=== PATIENT | male | born 1980 | race Caucasian/White ===

== ENCOUNTER 2025-01-18 13:41 | Inpatient (IN) | payer OTHER, MEDICAID ==
[~2025-01-18] VITALS: Ht 182.9 cm; Wt 86.4 kg
[2025-01-18] VITALS (21 sets, daily range): BP systolic 111–143; BP diastolic 57–86; PULSE 52–66; RESP 14–21; TEMP 96.8–98; O2SAT 94–98
[~2025-01-18 13:41] MED LIST: LIDOcaine 1% 30ml preserv. free vial ONE; heparin 25,000 UNIT/250ml bag 250 ML IV ONE; iohexol 350MG/ML 100ml bottle IV ONE; nitroGLYCERIN 0.4mg SUBLingual tab SL ONE; tirofiban 12.5mg in NS 250mL 250 ML IV ONE
--- NOTE | 2025-01-18 13:45 | Physician Documentation ---
History of Present Illness ~ Stated Complaint: STEMI Time Seen by MD: 13:45 Source: patient HPI 44-year-old male prior history of methamphetamine use presenting for chest pain. His chest pain has been on and off over the last few days and then began abruptly about half an hour prior to arrival. He describes it as a crushing tightness with associated shortness of breath. No history of venous thromb oembolism . No family history of sudden cardiac Medication Reconciliation Allergies: Uncoded Allergies: BEES (Allergy, Unknown, 01/18/25) Review of Systems All Other Systems at this time: Reviewed and Negative Respiratory: Reports: shortness of breath, SOB with exertion Cardiovascular: Reports: chest pain Gastrointestinal: Denies: abdominal pain Physical Exam Physical Exam Uncomfortable, diaphoretic Pulmonary clear to auscultation Cardiac no murmur Abdomen is soft nontender Neuro awake alert oriented Lower extremity no edema Progress Progress Note Labs independently interpreted showed troponin elevation Discussed case with Cardiology they agreed that this is a STEMI and he is taken to the laborer wrecking and salvaging Results/Orders Reviewed/noted all lab results: Yes Results/Orders Orders - ANAI SAINZ MD Hs Troponin I W Calculations (01/18/25 15:46) Hs Troponin I W Calculations (01/18/25 16:46) Chest,Single View (01/18/25 13:46) Monitor (01/18/25 13:46) Saline Lock (01/18/25 13:46) Oxygen (01/18/25 13:46) Type And Screen (01/18/25 ) Nitroglycerin Sublingual Tab (Nitrostat (01/18/25 13:55) Drug Screen, Urine (01/18/25 13:55) Completed Orders - ANAI SAINZ MD Cbc/Diff (01/18/25 13:46) Pt Inr (01/18/25 13:46) PTT (01/18/25 13:46) PBNP (01/18/25 13:46) Hs Troponin I W Calculations (01/18/25 13:46) Chest,Single View (01/18/25 13:46) Electrocardiogram (01/18/25 13:46) CMP (01/18/25 13:46) Midazolam 1 Mg/Ml 2ml Inj. (Versed 1 Mg/ (01/18/25 14:17) Fentanyl/Pf (Fentanyl 0.05 Mg/Ml Syringe (01/18/25 14:17) Diphenhydramine Inj (Benadryl Inj.) (01/18/25 14:18) Heparin 1,000unit/Ml 10ml Vial (Heparin (01/18/25 14:26) Nitroglycerin 500mcg/5ml D5w (Nitroglyce (01/18/25 14:28) Iohexol 350mg/Ml 50ml Inj (Omnipaque 350 (01/18/25 14:30) Ticagrelor Tablet (Brilinta Tablet) (01/18/25 15:13) Medications Received in ER Medications (Trade) Dose Ordered Sig/Apolinar Route PRN Reason Start Time Stop Time Status Last Admin Dose Admin (Nitrostat SL tablet) 0.4 mg Q5MIN PRN SL chest pain 01/18/25 13:55 01/18/25 13:51 0.4 MG Vital Signs 01/18/25 01/18/25 01/18/25 13:49 14:06 14:09 Pulse 60 55 Resp 22 12 18 B/P (MAP) 129/83 130/82 (98) Pulse Ox 97 96 O2 Flow Rate 0 0 Laboratory Tests Test 01/18/25 13:49 White Blood Count 12.4 H Red Blood Count 5.51 Hemoglobin 16.5 Hematocrit 49.6 Mean Corpuscular Volume 90.0 Mean Corpuscular Hemoglobin 29.9 Mean Corpuscular Hemoglobin Concent 33.3 Red Cell Distribution Width 14.1 Platelet Count 311 Mean Platelet Volume 7.1 L Neutrophils (%) (Auto) 49.1 Lymphocytes (%) (Auto) 39.8 Monocytes (%) (Auto) 7.7 Eosinophils (%) (Auto) 2.5 Basophils (%) (Auto) 0.9 Neutrophils # (Auto) 6.1 Lymphocytes # (Auto) 5.0 H Monocytes # (Auto) 1.0 H Eosinophils # (Auto) 0.3 Basophils # (Auto) 0.1 CBC Comment Prothrombin Time 9.8 INR International Normalized Ratio 1.0 Activated Partial Thromboplast Time 23 Coagulation Comments Sodium Level 141 Potassium Level 3.6 Chloride Level 105 Carbon Dioxide Level 25.4 Anion Gap 11 Blood Urea Nitrogen 8 Creatinine 1.42 H Estimated GFR/1.73 m2 54 BUN/Creatinine Ratio 5.6 L Glucose Level 117 H Calcium Level 9.0 Total Bilirubin 0.4 Aspartate Amino Transf (AST/SGOT) 29 Alanine Aminotransferase (ALT/SGPT) 42 Alkaline Phosphatase 52 Troponin I High Sensitivity 168 *H Pro-B-Type Natriuretic Peptide 102 Total Protein 7.0 Albumin 3.8 Globulin 3.2 Albumin/Globulin Ratio 1.2 Chemistry Comments EKG/XRAY/CT/US/VASC/MRI EKG : Additional Comment EKG independently interpreted time 1:58 p.m. indication chest pain sinus bradycardia rate 48 ST-elevation [address] depression lead V1 Medical Decision Making Differential Dx:Considerations: Include: angina, aortic dissection, chest wall pain, cholelithiasis, CHF Departure Disposition: ADMITTED INPATIENT Admitted to Inpatient Unit: to creative developer Impression: Primary Impression: STEMI (ST elevation myocardial infarction) Qualified Codes: I21.3 - ST elevation (STEMI) myocardial infarction of unspecified site Referrals: NO PRIMARY CARE PROVIDER (PCP) Critical Care Note Total Time (mins): 30 Critical Care Note The very real possibility of a deterioration of this patient's condition required the highest level of my preparedness for sudden, emergent intervention. I provided critical care services, which included medication orders, frequent reevaluations of the patient's condition and response to treatment, ordering and reviewing test results, and discussing the case with various consultants. Excludes time spent performing separately billable procedures. The critical care time associated with the care of the patient was 30 minutes in the acute management of ST-elevation [place] Signature Scribe Signature: na Attestation: ANAI Guthrie MD January 18, 2025 13:45
[2025-01-18] MEDS: nitroGLYCERIN 0.4mg SUBLingual tab SL PRN (13:51)
[2025-01-18 13:56] LABS: BASOPHILS # (AUTO) 0.1 X10'3 (0-0.2); BASOPHILS % (AUTO) 0.9 % (0-1); EOSINOPHILS # (AUTO) 0.3 X10'3 (0-0.9); EOSINOPHILS % (AUTO) 2.5 % (0-6); HEMATOCRIT 49.6 % (42.0-52.0); HEMOGLOBIN 16.5 g/dl (14.0-17.9); LYMPHOCYTES % (AUTO) 39.8 % (21-51); MEAN CORPUSCULAR HEMOGLOBIN 29.9 PG (27.0-31.0); MEAN CORPUSCULAR HGB CONC 33.3 g/dL (33.0-36.5); MEAN PLATELET VOLUME 7.1 FL (7.4-10.4); MONOCYTES % (AUTO) 7.7 % (2-12); NEUTROPHILS # (AUTO) 6.1 X10'3 (1.8-7.7); NEUTROPHILS % (AUTO) 49.1 % (42-75); PLATELET COUNT 311 X10'3 (140-440); RED BLOOD COUNT 5.51 X10'6 (4.70-6.10); RED CELL DISTRIBUTION WIDTH 14.1 % (11.5-14.5); WHITE BLOOD COUNT 12.4 X10'3 (4.5-11.0)
--- NOTE | 2025-01-18 14:00 | ELECTROCARDIOGRAPH REPORT ---
[facility] Test Date: 2025-01-18 Test Time: 13:58:13 Pat Name: LEANDRA HARRIS Department: EMERGENCY ROOM Room: [place] [address] Gender: M Sales Team Recruiter: CHELO : 1980 Requested By: ANAI SAINZ Order Number: [id number] Reading MD: Dr. Leodan Hicks Measurements Intervals [place] Rate: 48 P: 66 SC: 126 QRS: 78 QRSD: 120 T: 74 QT: 460 QTc: 411 Interpretive Statements Sinus bradycardia Nonspecific intraventricular conduction delay Inferior infarct, acute (LCx) Lateral leads are also involved Electronically Signed On 01-20-2025 11:02:[address] Leodan Hicks Please click the below link to view image of tracing.
--- NOTE | 2025-01-18 14:02 | RADIOLOGY REPORT ---
EXAM: DI CHEST,SINGLE VIEW HISTORY: CP/STEMI ALERT COMPARISON: None TECHNIQUE: Portable upright AP view of the chest was performed. FINDINGS: There is hazy opacity in the right lung base. No pneumothorax, consolidative infiltrates, or pulmonar y edema. There may be an azygous lobe. The heart is not enlarged. IMPRESSION: 1. Hazy opacity in the right lung base which may represent scarring, atelectasis, or mild pneumonia. Comparison with old films would be helpful in making this distinction. 2. The left lung is clear.
[2025-01-18 14:11] LABS: APTT 23 SECONDS (22-32); PROTHROMBIN TIME 9.8 SECONDS (9.0-12.0)
[2025-01-18 14:13] LABS: ALANINE AMINOTRANSFERASE 42 U/L (12-78); ALBUMIN 3.8 G/DL (3.4-5.0); ALBUMIN/GLOBULIN RATIO 1.2 (1.1-1.5); ALKALINE PHOSPHATASE 52 IU/L (46-116); ANION GAP 11 (8-16); ASPARTATE AMINO TRANSFERASE 29 U/L (10-37); BILIRUBIN,TOTAL 0.4 MG/DL (0.1-1.0); BLOOD UREA NITROGEN 8 MG/DL (7-18); BUN/CREATININE RATIO 5.6 (10.0-20.0); CHLORIDE 105 MMOL/L (99-107); CREATININE 1.42 MG/DL (0.60-1.10); GLUCOSE 117 MG/DL (70-104); POTASSIUM 3.6 MMOL/L (3.5-5.1); SODIUM 141 MMOL/L (135-145); TOTAL CARBON DIOXIDE 25.4 MMOL/L (24-32); eCRCL 71 ML/MIN; eGFR 54 ML/MIN
[2025-01-18] MEDS ORDERED: midazolam 1 mg/ML 2ml injection ONE (14:17)
[2025-01-18] MEDS ORDERED: fentaNYL/PF 50MCG/1 ML 2ML syringe ONE (14:17)
[2025-01-18] MEDS ORDERED: diphenhydrAMINE 50 mg/ml inj ONE (14:18)
[2025-01-18 14:20] LABS: PRO BRAIN NATRIURETIC PEPTIDE 102 PG/ML (0-125)
[2025-01-18] MEDS ORDERED: heparin 1,000unit/ml 10ml vial 10 ML ONE (14:26)
[2025-01-18] MEDS ORDERED: nitroGLYCERIN 500mcg/5mL D5W 5 ML IV ONE (14:28)
[2025-01-18] MEDS ORDERED: iohexol 350 MG/ML 50ML vial IV ONE (14:30)
[2025-01-18] MEDS ORDERED: ticagrelor 90mg tablet ONE (15:13)
--- NOTE | 2025-01-18 16:36 | CONSULTATION REPORT ---
Cardiac Consultation Report Providers to CC ~ Subjective Subjective Cardiology consultation: Patient had several days of anginal symptoms finally culminating in severe pain and he was brought in by paramedics declared to be in acute NV initially arrived in the ER and then electrocardiogram appeared normalized and there was initial cancellation subsequently pain persisted repeat EKG showed ST elevation and acute NV was reestablished and patient called to the section laborer. He is shaking anxious writing with chest pain. He is status post right knee surgery has chronic lumbosacral pain. He is not working at this time due to osteoarthritis degenerative joint disease he manages his pain with THC. Remotely he used recreational substance abuse. His is present. Objective Vitals Vital Signs Date Time Temp Pulse Resp B/P (MAP) Pulse Ox O2 Delivery O2 Flow Rate FiO2 01/18/25 14:09 18 01/18/25 14:06 55 96 0 Lab Results: 01/18/25 1349 01/18/25 1349 Objective Carotid no bruit chest clear to auscultation percussion heart no murmur no S3 gallop no rub tachycardic. Peripheral pulses intact no edema. No lateralizing sign of stroke. Ocular motions intact speech fluent. Pupils equal. Coagulation Studies Laboratory Tests Test 01/18/25 13:49 Prothrombin Time 9.8 SECONDS (9.0-12.0) INR International Normalized Ratio 1.0 INR Activated Partial Thromboplast Time 23 SECONDS (22-32) Coagulation Comments Other Results Electrocardiogram variable ST-T changes concave ST elevation than normal STs then subsequent convex ST elevation in one lead. Laboratories are pending. The just have been drawn and a chest x-ray just performed. Problem\Assessment\Plan Additional Plan Impression waxing waning inferolateral myocardial infarction; recommendation diagnostic coronary angiography intervention as needed. Risks benefits alternatives discussed with patient he wants to proceed. AMARA VELEZ MD January 18, 2025 16:36
--- NOTE | 2025-01-18 16:39 | CARDIAC CATH REPORT ---
Cardiology Post Cath Findings Findings Findings: Post cardiac catheterization intervention cardiac note: Left heart catheterization left ventriculography left circumflex PTCA left circumflex stent deployment left ventriculography. 1. Left ventriculogram mid segment with small triangular shaped akinetic segment corresponding to left circumflex distribution vessel. 2. Heavy calcification of left anterior descending proximally with 20% narrowing. 3. 99% calcific proximal large left circumflex coronary artery thrombus present. 4. 60% 3 cm length mid right coronary artery narrowing. 5.: Post intervention 0% residual left circumflex narrowing. Comment: Patient has not been seeing physicians for medical care has no prior treatment of risk factors. He received Brilinta in the lab instructor. Heparin and Aggrastat to be shut off. Angio-Seal to be performed. Admitted to hospitalist service to initiate guideline directed medical therapy. Discussed results and findings with patient. Would like to see patient in follow-up post discharge approximately two weeks after discharge. AMARA VELEZ MD January 18, 2025 16:39
[2025-01-18] MEDS ORDERED: ondansetron/PF 4mg/2ml inj IV PRN ×2 (16:50→18:30)
[2025-01-18] MEDS ORDERED: normal saline 1000ml 1,000 ML IV SCH (16:50)
[2025-01-18] MEDS ORDERED: proCHLORperazine 10 MG/2 ml inj IV PRN ×2 (16:50→16:55)
[2025-01-18] MEDS ORDERED: nitroGLYCERIN 0.4mg SUBLingual tab SL PRN ×2 (16:50→18:35)
[2025-01-18] MEDS ORDERED: OXAZEpam 15mg capsule PO PRN ×2 (16:50→16:55)
[2025-01-18] MEDS ORDERED: HYDROcodone/acetaminophen 5mg/325mg tablet PO PRN ×2 (16:50→18:30)
[2025-01-18] MEDS ORDERED: morphine 10mg/ml inj. IV PRN (16:55)
[2025-01-18] MEDS ORDERED: HYDROcodone/acetaminophen 10/325mg tab PO PRN ×2 (16:55)
[2025-01-18] MEDS ORDERED: acetaminophen 325mg tablet PO PRN ×3 (16:55→18:30)
[2025-01-18] MEDS ORDERED: cyclobenzaprine 10mg tablet PO PRN (16:55)
[2025-01-18] MEDS ORDERED: magnesium hydroxide 30ml (MOM) UD suspension PO PRN ×2 (16:55→18:30)
[2025-01-18] MEDS ORDERED: morphine 4 MG/ML inj SYRINge IV PRN ×2 (16:55→16:56)
[2025-01-18] MEDS ORDERED: heparin 10,000 units/1 ML INJ IV ONE (17:10)
[2025-01-18] MEDS ORDERED: heparin 25,000 UNIT/250ml bag 250 ML IV PRN (17:10)
[2025-01-18] MEDS ORDERED: heparin 10,000 units/1 ML INJ IV PRN (17:10)
[2025-01-18] MEDS ORDERED: NO HOME MEDS (18:07)
--- NOTE | 2025-01-18 18:08 | CARDIOLOGY REPORT ---
DATE OF SERVICE: 01/18/2025 DICTATING PHYSICIAN: Reji Singer MD PROCEDURES: * Left heart catheterization. * Left ventriculography. * Selective left and right internal mammary angiography. * Selective left and right coronary angiography. * Left circumflex PTCA. * Left circumflex stent deployment. * Right iliofemoral arteriogram. * Conscious sedation administration 60 minutes. BRIEF HISTORY AND INDICATION: A 44-year-old male had several days of angina, subsequently had crushing chest pain, diaphoresis, was transported to the ER. Initial EKG did not show an acute MA. Subsequently, variable STs occurred with ST elevation and he was brought to the recyclable materials sorter for urgent catheterization and revascularization. No allergies. He is limited in his activities usually by low back pain and right knee pain. He has had a laparoscopic surgical procedure of his right knee. Risks, benefits and alternatives were discussed with him and he has decided to proceed. present. TECHNIQUE: Following usual sterile preparation and draping, right groin was infiltrated with 10 mL of 1% lidocaine local anesthetic. In the recyclable materials sorter, the patient received 25 of Benadryl intravenously. Heparin bolus was increased to a total of 8000, started on heparin infusion 1000 units per hour; started on a Aggrastat infusion, loading dose 25 mcg, infusion at 7.5 mcg per kilogram adjusted for his creatinine. He received 2 mg Versed and 100 mcg fentanyl for sedation. He was noted to be hypotensive and saline infusion was initiated. He received 1 liter during the procedure. Following placement of a 6-Ghanaian sheath in the right femoral artery, left and right coronary artery arteriography, internal mammary arteriography, and left ventriculography were performed with Mejia-shaped catheters. Catheter exchanges under fluoroscopy with J-tip guidewire. A 6-Ghanaian femoral left 4 guide with side hole and an XBC 4 guide with side hole did not fit to the ostium of the left main to provide adequate support for intervention. Finally, an XBC 4.5, 6-Ghanaian guide was used. In the meantime, 6-Ghanaian arterial sheath was upgraded to a 7-Ghanaian sheath, so there would be less friction retained with respect to catheter manipulation. A BMW 0.014 wire was positioned across the stenotic segment. Initially, a 2.5 mm x 12 mm Trek balloon was deployed to 14 atmospheres within stenotic segments. Subsequently, a 3 mm x 12 mm [place] stent was deployed to 14 atmospheres. Wire was removed. Repeat angiography was performed. A 6-Ghanaian femoral right 4 guide with side hole was used for repeat right coronary angiography. Intracoronary nitroglycerin was administered. It was a stable ____ cm length right coronary artery narrowing. It was decided not to intervene. Sheaths were sewn in place. The patient is on heparin and Aggrastat. They are to be discontinued. He received ticagrelor 180 p.o. in the recyclable materials sorter. Angio-Seal to be applied 2 hours later. No complications. 170 mL of 350 Omnipaque contrast was used. Fluoroscopy time was 31 minutes. Radiation exposure was 8087 cGy/cm2. FINDINGS: Ejection fraction of 66% mid inferior segment with a triangle-shaped akinetic segment from left circumflex vessel involvement. There is heavy calcification of the proximal left anterior descending, 25% narrowing, 99% proximal left circumflex narrowing with thrombus present. Large right coronary artery with 3 cm length 60% narrowing. Post intervention, 0% residual left circumflex narrowing. RESULTS: * Mid inferior small triangle-shaped akinetic segment, ejection fraction of 66%. * Heavy calcification of proximal left anterior descending, 25% narrowing. * 99% proximal left circumflex thrombus. * Post left circumflex sent, 0% residual stenosis. * Right coronary artery with ____ cm length, 60% mid narrowing, unresponsive to intracoronary nitroglycerin. COMMENT: The patient will be started on guideline-directed therapies, admitted to the hospitalist service. Reji Singer MD TID: [id number] RECEIPT: [id number] TR/NATTY/DAR cc: Hospitalist Service, [facility]
[2025-01-18] MEDS ORDERED: mag hydrox/Alum hydrox/simeth 30ml oral suspension PO PRN (18:30)
[2025-01-18] MEDS ORDERED: potassium Cl 40MEQ/1/2NS 520ml 520 ML IV PRN (18:30)
[2025-01-18] MEDS: PERFLUTREN PROTEIN-A MICROSPHR (Optison) 0.22 MG/ML 3ML VIAL IV ONE (18:30)
[2025-01-18] MEDS ORDERED: magnesium Cl slow-release 64mg tablet PO PRN (18:30)
[2025-01-18] MEDS: normal saline 1000ml 1,000 ML IV SCH (18:30)
[2025-01-18] MEDS ORDERED: potassium Cl 20 mEq SR tablet PO PRN ×2 (18:30)
[2025-01-18] MEDS ORDERED: magnesium sulf-water 2g/50mL 50 ML IV PRN (18:30)
[2025-01-18] MEDS ORDERED: morphine 2 MG/ML inj. syringe IV PRN (18:30)
[2025-01-18] MEDS ORDERED: magnesium sulf-water 4G/100mL 100 ML IV PRN (18:30)
--- NOTE | 2025-01-18 18:40 | HISTORY AND PHYSICAL-Residence ---
History & Physical Providers to CC Resident Creating Document: FERNIE BURGOS, RES CC: DEMETRIUS DISLA MD ~ History of Present Illness Reason for Admit\Complaint: Chest pain since two days History of Present Illness A 44-year-old male with no past medical history presented to the ED with severe crushing chest pain since this morning. Patient has been experiencing chest pain that has been intermittent for the last two days but this has been the worst episode in the morning. Patient states that he had sharp chest pain which was 10/10 in severity with radiation to the right arm and that settle down with nitroglycerin momentarily. In the ED, EKG showed ST elevations in two three AVF therefore STEMI alert was called and patient was directly transferred to the blood bank laboratory technician where he underwent catheterization and stent placement in the left circumflex artery. Patient endorses associated shortness of breaths, dizziness, palpitations, diaphoresis with chest pain. Allergies: Uncoded Allergies: BEES (Allergy, Unknown, 01/18/25) Home Medications Home Medications Active Reported No Home Medications (Home Med List) Each Past Medical History Past Medical History None Past Surgical History Surgical History Comment Knee surgery Past Social History Social History Comment Patient lives at home with his Goes [facility] for [facility] Independent with ambulation Does not smoke cigarettes, consume alcohol or illicit drugs Consumes marijuana (smoking) every day ROS ROS All other systems reviewed in full and negative except for the pertinent positives mentioned in the HPI Respiratory: Reports: shortness of breath, SOB with exertion Cardiovascular: Reports: chest pain Gastrointestinal: Denies: abdominal pain Exam Vitals: Vital Signs Date Time Temp Pulse Resp B/P (MAP) Pulse Ox O2 Delivery O2 Flow Rate FiO2 01/18/25 17:00 62 14 126/83 97 123/62 01/18/25 14:06 0 General: General: Alert, awake, oriented, in acute distress HEENT: PERRLA, no icterus, pallor, lymphadenopathy, carotid bruit Respiratory system: Bilateral vesicular breath sounds heard, no adventitious breath sounds CVS: S1-S2 heard, no murmurs/rubs/gallop GI: Soft, nontender, no organomegaly, no guarding/rigidity, bowel sounds present Neuro: No focal neurological deficits present Extremities: No edema cyanosis clubbing Musculoskeletal: No deformity Skin: Warm and dry Psych: Normal affect and mood Diagnostic Data Last Recorded Lab Results: 01/18/25 1349 01/18/25 1349 Diagnostic Data: Laboratory Tests Test 01/18/25 13:49 Prothrombin Time 9.8 SECONDS (9.0-12.0) INR International Normalized Ratio 1.0 INR Activated Partial Thromboplast Time 23 SECONDS (22-32) Coagulation Comments Advance Care Planning Advanced Care plannin - 30 Minutes (I spent 20 minutes discussing various resuscitative measures and the patient decided to be full code) Additional Plan Assessment: A 44-year-old male with no significant past medical history presented to the ED with chest pain, EKG revealed STEMI in inferior leads. Patient was immediately to the blood bank laboratory technician and underwent stent placement in the left circumflex artery. Plan: STEMI status post stent placement in LCX Mildly elevated troponins EKG: ST elevations in II, III, AVF Continue aspirin 81 mg, Brilinta 90 mg, atorvastatin 40 mg Follow up with lipid panel, A1c, U tox, echo Sublingual nitroglycerin for chest pain Q 5 minutes p.r.n. GDM T optimization: Metoprolol succinate 25 mg once daily, losartan 25 mg once daily Prerenal CLAUDIO probably secondary to renal tubular stasis Elevated creatinine Continue to monitor BMP Continue IV fluids at 100 cc/hour Mild leukocytosis Probably reactive Continue to monitor CBC with differential Code status: Full code Diet: Heart healthy Anticoagulation: Aspirin, Brilinta Disposition: Admit to PCU, follow up with echo, lipid panel, U tox, A1c Fernie Burgos MD Internal Medicine, PGY 1 Date of Service: January 18, 2025 Billing Provider: DEMETRIUS DISLA MD, SIVA, RES January 18, 2025 18:40
[2025-01-18] MEDS: HYDROcodone/acetaminophen 10/325mg tab PO PRN (19:35)
[2025-01-18] MEDS: aspirin 81mg tab.chew PO ONE (19:37)
[2025-01-18] MEDS ORDERED: ticagrelor 90mg tablet PO SCH (20:00)
[2025-01-18] MEDS: K and/or MAG REPLACEMENT MC SCH (20:00)
[2025-01-18] MEDS ORDERED: docusate sod 100mg capsule PO SCH (20:00)
[2025-01-18] MEDS: docusate sod 100mg capsule PO SCH (20:00)
[2025-01-18 20:17] LABS: HEMOGLOBIN A1C 5.5 % (4.5-6.2)
[2025-01-19] VITALS (10 sets, daily range): BP systolic 117–139; BP diastolic 82–91; PULSE 54–72; RESP 14–22; TEMP 97.2–97.9; O2SAT 93–97
[2025-01-19] MEDS: aspirin 81mg, enteric-coated 1 TAB TABLET.DR PO SCH (07:05)
[2025-01-19] MEDS: metoprolol succinate 25mg (24-HOUR) SR. Tablet PO SCH (07:06)
[2025-01-19] MEDS: losartan 25mg tablet PO SCH (07:06)
[2025-01-19 07:20] LABS: BASOPHILS # (AUTO) 0.1 X10'3 (0-0.2); BASOPHILS % (AUTO) 0.5 % (0-1); EOSINOPHILS # (AUTO) 0.1 X10'3 (0-0.9); HEMATOCRIT 47.4 % (42.0-52.0); HEMOGLOBIN 15.9 g/dl (14.0-17.9); LYMPHOCYTES # (AUTO) 2.6 X10'3 (1.1-4.8); LYMPHOCYTES % (AUTO) 19.2 % (21-51); MEAN CORPUSCULAR HEMOGLOBIN 30.2 PG (27.0-31.0); MEAN CORPUSCULAR HGB CONC 33.6 g/dL (33.0-36.5); MEAN CORPUSCULAR VOLUME 89.9 FL (78-98); MONOCYTES % (AUTO) 7.3 % (2-12); NEUTROPHILS # (AUTO) 9.9 X10'3 (1.8-7.7); PLATELET COUNT 279 X10'3 (140-440); RED BLOOD COUNT 5.28 X10'6 (4.70-6.10); RED CELL DISTRIBUTION WIDTH 14.4 % (11.5-14.5); WHITE BLOOD COUNT 13.8 X10'3 (4.5-11.0)
[2025-01-19 07:30] LABS: ALBUMIN 3.1 G/DL (3.4-5.0); ANION GAP 9 (8-16); BLOOD UREA NITROGEN 8 MG/DL (7-18); BUN/CREATININE RATIO 6.9 (10.0-20.0); CALCIUM 8.3 MG/DL (8.5-10.1); CHLORIDE 107 MMOL/L (99-107); CHOL/HDL RATIO 3.3 (0.00-4.99); CHOLESTEROL 117 MG/DL (0-200); CREATININE 1.16 MG/DL (0.60-1.10); GLUCOSE 94 MG/DL (70-104); HDL CHOLESTEROL 35 MG/DL (35-60); LDL CHOLESTEROL 70 MG/DL (50-100); POTASSIUM 4.1 MMOL/L (3.5-5.1); SODIUM 141 MMOL/L (135-145); TOTAL CARBON DIOXIDE 25.1 MMOL/L (24-32); TRIGLYCERIDES 118 MG/DL (20-135); eCRCL 87 ML/MIN; eGFR 68 ML/MIN
[2025-01-19] MEDS ORDERED: metoprolol succinate 25mg (24-HOUR) SR. Tablet PO SCH (08:00)
[2025-01-19] MEDS ORDERED: atorvastatin 20mg tablet PO SCH ×2 (08:00→20:00)
--- NOTE | 2025-01-19 08:28 | ELECTROCARDIOGRAPH REPORT ---
[facility] Test Date: 2025-01-18 Test Time: 13:42:10 Pat Name: LEANDRA HARRIS Department: EMERGENCY ROOM Room: [place] [id number] A Gender: M First Dyer: CHANI : 1980 Requested By: DEPARTMENT EMERGENCY Order Number: [id number] Reading MD: Dr. Leodan Hicks Measurements Intervals [place] Rate: 47 P: 76 UT: 117 QRS: 83 QRSD: 117 T: 72 QT: 456 QTc: 404 Interpretive Statements Sinus bradycardia Borderline short UT interval Nonspecific intraventricular conduction delay Inferior infarct, acute (LCx) Electronically Signed On 01-20-2025 11:02:[address] Leodan Hicks Please click the below link to view image of tracing.
--- NOTE | 2025-01-19 11:13 | CARDIOLOGY REPORT ---
APPROVED REPORT EXAM: Comprehensive 2D, Doppler, and color-flow Echocardiogram. Patient Location: 3[address] Blood Pressure: 132/84 mmHg Heart Rate: 56 bpm Rhythm: SINUS BRADYCARDIA Indications CORONARY ARTERY DISEASE SHORTNESS OF BREATH STENT X1 01/18/25 Electro Mechanical Solar Technician: Sasha Singer MD Previous echo: none 2D Dimensions RVDd 3.9 cm IVSd 1.1 (0.7-1.1cm) LVDd 5.1 cm PWd 0.9 (0.7-1.1cm) IVSs 1.3 (0.8-1.2cm) LVDs 3.5 (2.5-4.0cm) PWs 1.6 (0.8-1.2cm) LVOT Diameter 2.25 (1.8-2.4cm) LVEF(%) 60.5 (>50%) Ao Asc Diam.3.29 cm FS (%) 32.5 % SV 75.8 ml CO 4.2 L/min M-Mode Dimensions Left Atrium(MM) 2.30 (2.5-4.0cm) Aortic Root 3.74 (2.2-3.7cm) Aortic Cusp Exc 2.68 (1.5-2.0cm) MV EPSS 0.7 (<0.5cm) Aortic Valve AoV Peak Emiliano. 120.2 cm/s AoV VTI 23.9 cm AO Peak GR. 5.8 mmHg AO Mean GR. 3 mmHg LVOT VTI 18.32 cm LVOT Peak Emiliano. 86.3 cm/s SHWETA(VTI)/BSA 3.05 cm2/m2 SHWETA (VTI) 3.05 cm2 Mitral Valve MV E Velocity 57.1 cm/s MV Peak Gr. 2 mmHg MV DECEL TIME 140 ms MV A Velocity 61.8 cm/s MV PHT 64 ms E/A Ratio 0.9 MVA (PHT) 3.44 cm2 MV VMax76.5 cm/s TDI Medial E' P. V 14.69 cm/s E/Medial E' 3.9 Pulmonary Vein S1 Velocity 79.3 cm/s D2 Velocity 58.0 cm/s PVa [id number] cm/s PVa [id number] msec LEFT VENTRICLE Normal LV size and wall thickness. Overall systolic function is low normal. LVEF is 55-60%. RIGHT VENTRICLE RV is mildly dilated with normal systolic function. ATRIA LA size is normal. RA size is normal. AORTIC VALVE Trileaflet AV appears mildly sclerotic without stenosis or insufficiency. MITRAL VALVE Normal MV annulus without calcification or stenosis. Trace regurgitation. TRICUSPID VALVE TV appears structurally normal with trace regurgitation. PULMONIC VALVE Normal PV without stenosis, physiologic insufficiency. GREAT VESSELS Aortic root is normal in size. Ascending aorta is normal in size. The IVC is normal in size and colla pses greater than 50% with inspiration. PERICARDIUM Normal pericardium. No effusion. Other Information Study Quality: Adequate
[2025-01-19] MEDS ORDERED: TICA90TA PO (16:18)
[2025-01-19] MEDS ORDERED: ATOR20TA66 PO (16:18)
[2025-01-19] MEDS ORDERED: METO-395 PO (16:18)
[2025-01-19] MEDS ORDERED: LOSA25TA41 PO (16:18)
[2025-01-19] MEDS ORDERED: NITR0.4T51 SL (16:18)
[2025-01-19] MEDS ORDERED: ASPI-1071 PO (16:18)
--- NOTE | 2025-01-19 19:04 | DISCHARGE SUMMARY-Residence ---
Discharge Summary Providers to CC Resident Creating Document: LATRELL CASTANEDA, VELMA ~ Discharge Summary Admission Diagnosis: STEMI Hospital Course DATE OF ADMISSION: January 18, 2025 DATE OF DISCHARGE: January 19, 2025 Discharge Diagnosis\Comment: STEMI status post stent placement in LCX Prerenal CLAUDIO probably secondary to renal tubular stasis Mild leukocytosis, likely reactive Operations\Procedures: Left coronary angiography, PCI, stent placement Consultants: Dr. Velez Complications: Non Condition on DC: Stable New Medications: Aspirin (Ecotrin*) 81 Mg Tablet.dr 1 TAB PO DAILY for 30 Days, #30 TAB.SR Atorvastatin Calcium (Atorvastatin Calcium) 20 Mg Tablet 40 MG PO DAILY for 30 Days, #30 TAB Losartan Potassium (Losartan Potassium) 25 Mg Tablet 25 MG PO DAILY for 30 Days, #30 TAB Metoprolol Succinate (Metoprolol Succinate) 25 Mg Tab.sr.24h 25 MG PO DAILY for 30 Days, #30 TAB.SR Nitroglycerin SL* (Nitrostat SL*) 0.4 Mg Tablet 0.4 MG SL Q5MIN PRN for chest pain for 30 Days, #30 TAB Ticagrelor (Brilinta) 90 Mg Tablet 90 MG PO BID for 30 Days, #60 TAB Discharge Summary: The patient presented with intermittent chest pain over the past two days, which significantly worsened on the morning of admission. He described the pain as sharp 10/10 in intensity, radiating to the right arm, and associated with shortness of breath, dizziness, palpitation, and diaphoresis. The pain improved with the administration of nitroglycerin. Initial EKG revealed ST elevation in lead two three and AVF, consistent with inferior ST elevation myocardial infarction. A STEMI alert was activated, and the patient was emergently transferred to the cardiac catheterization lab. He underwent coronary angiography and percutaneous coronary intervention with stent placement in the left circumflex artery. The procedure was completed without complication. Post procedure, the patient reported complete resolution of the chest pain and no recurrence of symptoms. He was hemodynamically stable, ambulatory, and tolerated oral intake well. He was discharged in stable condition on dual antiplatelet lead and guideline directed medical therapy for coronary artery disease. Including aspirin, Brilinta, statin, and beta-solo as indicated. The patient was discharged with the following instructions: YOU UNDERWENT CORONARY STENT PLACEMENT, YOU HAVE BEEN PRESCRIBED BRILINTA AND ASPIRIN AMONG OTHER MEDICATIONS. BRILINTA/TICAGRELOR: TACHY EXACTLY PRESCRIBED. DO NOT MISS ANY DOSE. THIS MEDICATION HELPS PREVENT BLOOD CLOTS IN YOUR STENT IN REDUCE THE RISK OF HEART ATTACK CODE STROKE. ASPIRIN 81 MG DAILY: CONTINUE TAKING DIRECTED ALONG WITH BRILINTA TO KEEP THE STENT OPEN. DO NOT STOP BRILINTA OR ASPIRIN WITHOUT DISCUSSING WITH YOUR TDP DISPLAYS ANALYST. STOPPING THESE MEDICATIONS CAN LEAD TO A SERIOUS COMPLICATIONS SUCH REOCCLUSION/BLOCKAGE OF YOUR STENT. ALWAYS HAVE ENOUGH SUPPLY AND REFILL OF BRILINTA AND ASPIRIN. [place] YOUR PHARMACY OR PRIMARY CARE DOCTOR AHEAD OF TIME TO PREVENT RUNNING OUT. FOLLOW UP WITH YOUR PRIMARY CARE DOCTOR WITHIN ONE WEEK. ALSO FOLLOW UP WITH YOUR TDP DISPLAYS ANALYST; DR. VELEZ AND CALL HIS OFFICE WITHIN TWO WEEKS. RETURN TO ER OR CALL 911 IF YOU EXPERIENCE CHEST PAIN, SHORTNESS OF BREATH, FAINTING OR DIZZINESS, BLEEDING THAT DOES NOT STOP, BLACK OR TARRY STOOLS. AVOID SMOKING AND LIMIT ALCOHOL. MAINTAIN A HEART HEALTHY DIET AND REGULAR PH YSICAL ACTIVITY ADVISED BY YOUR TDP DISPLAYS ANALYST. Discharge physical exam: Vital Signs Date Time Temp Pulse Resp B/P (MAP) Pulse Ox O2 Delivery O2 Flow Rate FiO2 01/19/25 10:55 97.9 72 17 130/87 (101) 97 Room Air 01/18/25 14:06 0 General: Awake and Alert, no acute distress. HEENT: Conjunctiva pink, Sclera clear, Mucus Membranes moist. Neck: Supple without masses and tenderness. Resp: Unlabored. Lungs clear to auscultation bilaterally. Heart: Regular Rate and rhythm, normal S1 and S2 without murmur, rub or gallop. Abdomen: Soft and non tender no organomegaly Extremities: Dressing in the groin area, dry and clean; no leakage or discharge no swelling Skin: Warm and Dry. *Problems/Diagnosis: (1) STEMI (ST elevation myocardial infarction) Status: Acute Total Time Spent on D/C: Up to 30 Minutes Date of Service: January 19, 2025 Billing Provider: DEMETRIUS DISLA MD Problem Qualifiers (1) STEMI (ST elevation myocardial infarction): Involved coronary artery: unspecified coronary artery Qualified Codes: I21.3 - ST elevation (STEMI) myocardial infarction of unspecified site LATRELL CASTANEDA RES January 19, 2025 19:03
[2025-01-19] MEDS ORDERED: ticagrelor 90mg tablet PO SCH (20:00)
== END 2025-01-19 17:27 | disposition home or self-care (01) | DRG 321 ==
LOC: ER 13:42 → PCU 3S 15:47
PROVIDERS: ADMIT Family Medicine; ATTEND Family Medicine
PROC: 027034Z Dilation of Coronary Artery, One Artery with Drug-eluting Intraluminal Device, Percutaneous Approach (ICD-10-PCS; principal; 2025-01-18)
PROC: B2151ZZ Fluoroscopy of Left Heart using Low Osmolar Contrast (ICD-10-PCS; 2025-01-18)
PROC: 4A023N7 Measurement of Cardiac Sampling and Pressure, Left Heart, Percutaneous Approach (ICD-10-PCS; 2025-01-18)
PROC: B2151ZZ Fluoroscopy of Left Heart using Low Osmolar Contrast (ICD-10-PCS; 2025-01-18)
PROC: B2111ZZ Fluoroscopy of Multiple Coronary Arteries using Low Osmolar Contrast (ICD-10-PCS; 2025-01-18)
DX: I21.19 ST elevation (STEMI) myocardial infarction involving other coronary artery of inferior wall (principal); N17.0 Acute kidney failure with tubular necrosis; M54.50 Low back pain, unspecified; G89.29 Other chronic pain; D72.828 Other elevated white blood cell count; Z79.899 Other long term (current) drug therapy; Z91.030 Bee allergy status
CPT/HCPCS: 93306; 93458; C9606; 36415; 71045; 80048; 80053; 80061; 83036; 83605; 83735; 83880; 84145; 84484; 85025; 85610; 85730; 86885; 86900; 86901; 87040; 87081; 93005; 99152; 99153; A6258; A6449; C1725; C1751; C1769; C1874; C1894; G0378; J1200; J1644; J2003; J2250; J3010; J3246; J7030; Q9967